=== PATIENT | male | born 1960 | race Caucasian/White ===

== ENCOUNTER 2017-11-17 08:07 | Outpatient (CLI) | payer OTHER ==
[2017-11-17 11:32] LABS: BUN - BLOOD UREA NITROGEN 19 mg/dL (6-20); CALCIUM 8.8 mg/dL (8.5-10.3); CARBON DIOXIDE - CO2 29 mmol/L (21-32); CHLORIDE 106 mmol/L (101-111); CHOL/HDL RATIO 4.8 (<5.0); CHOLESTEROL 215 mg/dL; CREATININE 0.7 mg/dL (0.6-1.2); GFR - MDRD 115 (>89); GLUCOSE 114 mg/dL (70-100); HDL CHOLESTEROL 45 mg/dL; LDL CHOLESTEROL,CALCULATED 146 mg/dL; LDL/HDL RATIO 3.2 (<3.6); SODIUM 139 mmol/L (135-145); VLDL CHOLESTEROL 24 mg/dL
== END 2017-11-17 08:08 | disposition home or self-care (01) ==
LOC: LAB.F 08:07
PROVIDERS: ATTEND Internal Medicine
DX: Z00.00 Encounter for general adult medical examination without abnormal findings (principal); Z12.5 Encounter for screening for malignant neoplasm of prostate
CPT/HCPCS: 36415; 80048; 80061; 83721; 84153

== ENCOUNTER 2018-11-29 11:43 | Outpatient (CLI) | payer OTHER | END 2018-11-29 11:44 | disposition EMS.NT | LOC: EMS 11:43 | PROVIDERS: ATTEND Surgery | DX: M25.512 Pain in left shoulder (principal); V49.9XXA Car occupant (driver) (passenger) injured in unspecified traffic accident, initial encounter; Y92.413 State road as the place of occurrence of the external cause ==

== ENCOUNTER 2018-12-01 10:47 | Outpatient (CLI) | payer OTHER ==
--- NOTE | 2018-12-01 15:32 | XRAY Report ---
Reason: SHOULDER JOINT PAIN, RIGHT, M25.511, Z00.00 Procedure Date: 12/01/2018 Accession Number: [id number] / [id number] Procedure: XRS - Shoulder 3 View RT CPT Code: FULL RESULT: EXAM: RIGHT SHOULDER RADIOGRAPHY EXAM DATE: 12/01/2018 11:28 AM. CLINICAL HISTORY: SHOULDER JOINT PAIN, RIGHT, M25. 511, Z00. 00. COMPARISON: None. TECHNIQUE: 3 views. FINDINGS: Bones: Normal. No fracture or bone lesion. Joints: Large humeral head osteophyte. Joint space loss glenohumeral joint with subchondral sclerosis. Possible loose body in the joint. AC joint hypertrophy. Soft tissues: The visualized hemithorax is unremarkable. No soft tissue swelling. IMPRESSION: Severe degenerative changes. Possible loose body RADIA
[2018-12-01 17:16] LABS: BASOPHILS % (AUTO) 0.3 %; EOSINOPHILS # (AUTO) 0.1 10^3/uL (0.0-0.7); HGB - HEMOGLOBIN 15.2 g/dL (14.0-18.0); LYMPHOCYTES # (AUTO) 1.9 10^3/uL (1.5-3.5); LYMPHOCYTES % (AUTO) 29.1 %; MEAN CORPUSCULAR HEMOGLOBIN 32.6 pg (27.0-31.0); MEAN CORPUSCULAR HGB CONC 33.8 g/dL (32.0-36.0); MEAN CORPUSCULAR VOLUME 96.6 fL (80.0-94.0); MEAN PLATELET VOLUME 11.5 fL (7.4-11.4); MONOCYTES # (AUTO) 0.5 10^3/uL (0.0-1.0); MONOCYTES % (AUTO) 7.4 %; NEUTROPHILS % (AUTO) 60.9 %; PLT - PLATELET COUNT 235 10^3/uL (130-450); RED BLOOD COUNT 4.66 10^6/uL (4.70-6.10); RED CELL DISTRIBUTION WIDTH 12.3 % (12.0-15.0); WHITE BLOOD COUNT 6.6 x10^3/uL (4.8-10.8)
[2018-12-01 17:35] LABS: ALBUMIN 4.2 g/dL (3.2-5.5); ALBUMIN/GLOBULIN RATIO 1.5 (1.0-2.2); ALKALINE PHOSPHATASE 50 IU/L (42-121); ALT ALANINE AMINOTRANSFERASE 24 IU/L (10-60); AST ASPARTATE AMINOTRANSFERASE 18 IU/L (10-42); BILIRUBIN,TOTAL 0.9 mg/dL (0.2-1.0); BUN - BLOOD UREA NITROGEN 13 mg/dL (6-20); CALCIUM 8.9 mg/dL (8.5-10.3); CARBON DIOXIDE - CO2 25 mmol/L (21-32); CHLORIDE 104 mmol/L (101-111); CHOLESTEROL 210 mg/dL; CREATININE 0.8 mg/dL (0.6-1.2); GFR - MDRD 99 (>89); GLUCOSE 99 mg/dL (70-100); HDL CHOLESTEROL 42 mg/dL; LDL CHOLESTEROL,CALCULATED 145 mg/dL; LDL/HDL RATIO 3.5 (<3.6); SODIUM 139 mmol/L (135-145); VLDL CHOLESTEROL 23 mg/dL
[2018-12-01 17:56] LABS: HEMOGLOBIN A1C 0.56 g/dL; HEMOGLOBIN A1C % 5.4 % (4.6-6.2)
== END 2018-12-01 10:48 | disposition home or self-care (01) ==
LOC: LAB.S 10:47 → DI.S 10:48
PROVIDERS: ATTEND Registered Nurse
DX: Z00.00 Encounter for general adult medical examination without abnormal findings (principal); M19.011 Primary osteoarthritis, right shoulder
CPT/HCPCS: 36415; 80053; 80061; 83036; 83721; 84443; 85025

== ENCOUNTER 2018-12-24 07:47 | Outpatient (CLI) | payer OTHER ==
--- NOTE | 2018-12-24 10:40 | MRI Report ---
Reason: SHOULDER JOINT PAIN, RIGHT Procedure Date: 12/24/2018 Accession Number: [id number] / [id number] Procedure: MRI - Shoulder RT W/O CPT Code: FULL RESULT: EXAM: RIGHT SHOULDER MRI WITHOUT CONTRAST EXAM DATE: 12/24/2018 08:50 AM. CLINICAL HISTORY: Right shoulder pain and limited range of motion. COMPARISON: SHOULDER 3 VIEW RT 12/01/2018 11:30 AM. TECHNIQUE: Multiplanar, multisequence T1-weighted and fluid-sensitive sequences of the shoulder without contrast. Other: None. FINDINGS: Some of the images are degraded due to patient-related motion artifact. Acromioclavicular Region: The acromion is type I. Small marginal osteophytes and tiny subcortical cysts at the distal end of clavicle and medial aspect of the acromion. The coracoacromial and coracoclavicular ligaments are intact. No subacromial/subdeltoid bursal fluid. Glenohumeral Region: No subluxation. Small to moderate sized joint effusion. There is a 7 x 4 x 4 mm loose body at the anteroinferior aspect of the glenohumeral joint. Mild synovial thickening. 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 The glenohumeral ligaments and joint capsule are unremarkable. Bone Marrow: Prominent marginal osteophyte at the inferior aspect of the humeral head. Sclerosis and slight cortical irregularity at the humeral head. Sclerosis and cortical irregularity and tiny subcortical cysts at the glenoid. Marginal osteophytes of the glenoid. No acute fracture or bone lesions. Labrum: Free edge fraying at the superior aspect of the labrum. There is a 7 x 6 x 5 mm paralabral cyst adjacent to the posterior aspect of the labrum and glenoid. The anterior and inferior aspects of the labrum are degenerated. Musculature/Rotator Cuff: There is supraspinatus and infraspinatus tendinosis. The teres minor tendon is intact. Low-grade partial-thickness intrasubstance tear at the distal aspect of the subscapularis tendon. Grade 4 atrophy of the teres minor muscle. Biceps Tendon: Proximal long head biceps tendinosis. Other: The subcutaneous tissues are unremarkable. IMPRESSION: 1. Severe glenohumeral joint osteoarthritis. Small to moderate sized joint effusion. Loose body at the anterior inferior aspect of the glenohumeral joint. Mild synovitis. 2. Free edge fraying of the superior aspect of the labrum. Degeneration at the anterior and inferior aspects of the labrum. Small paralabral cyst adjacent to the posterior aspect of the labrum and glenoid. 3. Supraspinatus and infraspinatus tendinosis. Low-grade partial-thickness intrasubstance tear at the distal aspect of the subscapularis tendon. 4. Grade 4 atrophy of the teres minor muscles. 5. Proximal long head biceps tendinosis. RADIA
== END 2018-12-24 07:48 | disposition home or self-care (01) ==
LOC: DI 07:47
PROVIDERS: ATTEND Orthopaedic Surgery Sports Medicine
DX: M19.011 Primary osteoarthritis, right shoulder (principal); M25.411 Effusion, right shoulder; M24.011 Loose body in right shoulder; S43.431A Superior glenoid labrum lesion of right shoulder, initial encounter; M65.9 Synovitis and tenosynovitis, unspecified; M75.101 Unspecified rotator cuff tear or rupture of right shoulder, not specified as traumatic; M62.511 Muscle wasting and atrophy, not elsewhere classified, right shoulder; M67.921 Unspecified disorder of synovium and tendon, right upper arm

== ENCOUNTER 2020-05-30 10:58 | Outpatient (CLI) | payer OTHER ==
[2020-05-30 15:28] LABS: BASOPHILS % (AUTO) 0.5 %; EOSINOPHILS # (AUTO) 0.1 10^3/uL (0.0-0.7); EOSINOPHILS % (AUTO) 1.8 %; HGB - HEMOGLOBIN 16.3 g/dL (14.0-18.0); LYMPHOCYTES # (AUTO) 1.9 10^3/uL (1.5-3.5); LYMPHOCYTES % (AUTO) 30.1 %; MEAN CORPUSCULAR HEMOGLOBIN 32.7 pg (27.0-31.0); MEAN CORPUSCULAR HGB CONC 34.1 g/dL (32.0-36.0); MEAN PLATELET VOLUME 11.4 fL (7.4-11.4); MONOCYTES # (AUTO) 0.5 10^3/uL (0.0-1.0); MONOCYTES % (AUTO) 7.7 %; NEUTROPHILS # (AUTO) 3.7 10^3/uL (1.5-6.6); NEUTROPHILS % (AUTO) 59.6 %; PLT - PLATELET COUNT 255 10^3/uL (130-450); RED BLOOD COUNT 4.98 10^6/uL (4.70-6.10); RED CELL DISTRIBUTION WIDTH 12.2 % (12.0-15.0); WHITE BLOOD COUNT 6.1 x10^3/uL (4.8-10.8)
[2020-05-30 16:45] LABS: ALBUMIN 4.2 g/dL (3.2-5.5); ALBUMIN/GLOBULIN RATIO 1.5 (1.0-2.2); BILIRUBIN,TOTAL 0.7 mg/dL (0.2-1.0); CALCIUM 9.1 mg/dL (8.5-10.3); CREATININE 0.8 mg/dL (0.6-1.2)
== END 2020-05-30 10:59 | disposition home or self-care (01) ==
LOC: LAB.S 10:58
PROVIDERS: ATTEND Internal Medicine
DX: R03.0 Elevated blood-pressure reading, without diagnosis of hypertension (principal); Z12.5 Encounter for screening for malignant neoplasm of prostate; R53.83 Other fatigue
CPT/HCPCS: 36415; 80053; 84153; 84270; 84402; 84403; 85025